=== PATIENT | female | born 1980 | race African-American/Black ===

== ENCOUNTER 2019-08-17 14:52 | Outpatient (CLI) | payer OTHER, SELFPAY ==
--- NOTE | ~2019-08-17 | US_ITS ---
EXAMINATION: US pelvic complete w TV EXAM DATE: 08/17/2019 15:42 INDICATION: Fibroid. TECHNIQUE: Pelvic transabdominal and transvaginal sonogram was performed. There are multiple graysca le and Doppler images available for interpretation. There is no prior study for comparison. FINDINGS: Uterus measures 15.4 x 9.0 x 7.9 cm, with multiple fibroids, largest measuring 8 cm. Endom etrial stripe measures 11 mm, within normal limits. There are nabothian cysts. There is no free pel kevin fluid. Right adnexa: The ovary is not identified. There is no adnexal mass. Left adnexa: The ovary measures 3.9 x 2.8 x 1.9 cm and is morphologically normal. Ovarian vascular fl ow confirmed. IMPRESSION: 1. Significantly enlarged fibroid uterus. Reviewed, dictated and finalized at location [facility].
== END 2019-08-17 14:53 | disposition home or self-care (01) ==
PROVIDERS: Visit Provider Obstetrics & Gynecology Gynecology
DX: D25.9 Leiomyoma of uterus, unspecified (principal)
CPT/HCPCS: 76830; 76856

== ENCOUNTER 2019-12-05 20:26 | Emergency (ER) | payer OTHER, SELFPAY ==
--- NOTE | ~2019-12-05 | US_ITS ---
US OB <=14 wk fetus w TV DATE: 12/05/2019 23:21 INDICATION: Mid pelvic pain. Abdominal pain. Vaginal bleeding. TECHNIQUE: Real-time imaging via transabdominal and transvaginal approaches COMPARISON: 08/17/2019 pelvic ultrasound FINDINGS: Lobular enlarged heterogeneous uterus with multiple fibroids, measuring up to 8.8 cm. There is an apparent intrauterine gestational sac with suggestion of a pole but no cardia c motion. Gestational sac size is consistent with 6 weeks 6 days estimated gestational age. [place]-rump length 0.66 cm is consistent with 6 weeks 4 days +/- 4 days, with GILBERT of 07/26/2020, compar ed to 07/03/2020 by LMP. Follow-up ultrasound imaging in one week is recommended. Right ovary measures 4.3 x 2.2 x 1.9 cm. Left ovary measures 2.8 x 2 x 1.7 cm with a 1.1 cm cyst. There is vascular flow demonstrated to both ovaries. No abnormal free pelvic fluid collection. IMPRESSION: No cardiac motion is demonstrated; recommend follow-up ultrasound imaging in one we ek to confirm possible demise Reviewed, dictated and finalized at [facility]. Reviewed, dictated and finalized at location [facility]. IMPRESSION: No cardiac motion is demonstrated; recommend follow-up ultras ound imaging in one week to confirm possible demise
[2019-12-05 20:28] VITALS: BP 181/110; PULSE 70; RESP 19; TEMP 36.4; O2SAT 98
[2019-12-05 21:51] VITALS: BP 170/102; PULSE 73; RESP 16; O2SAT 100
[2019-12-05 22:08] LABS: Basophils Percent Auto 0.6 % (0.2-1.2); Eosinophils Absolute Auto 0.3 K/mm3 (0-0.3); Eosinophils Percent Auto 4.4 % (0-4.4); Hematocrit 33.5 % (37.0-47.0); Hemoglobin 10.6 g/dL (12.0-15.0); Immature Granulocyte Absolute 0.01 K/mm3 (0.00-0.031); Immature Granulocyte Percent A 0.1 % (0-0.5); Lymphocytes Absolute Auto 2.16 K/mm3 (0.9-3.2); Lymphocytes Percent Auto 30.8 % (18.3-44.2); Mean Corpuscular HGB Conc 31.6 g/dl (32-36); Mean Corpuscular Hemoglobin 26.3 pg (26-34); Mean Corpuscular Volume 83.1 fl (80-100); Mean Platelet Volume 9.7 fl (7.4-10.4); Monocytes Absolute Auto 0.6 K/mm3 (0.1-0.6); Monocytes Percent Auto 8.3 % (2.6-8.5); Neutrophils Absolute Auto 3.9 K/mm3 (1.3-6.7); Neutrophils Percent Auto 55.8 % (45.5-73.1); Platelet Count Result 254 k/mm3 (150-375); Red Blood Count 4.03 M/mm3 (4.2-5.4)
--- NOTE | 2019-12-05 22:13 | PC.NURSE ---
XY notified of US orders.
[2019-12-05 22:25] LABS: Anion Gap 7 mmol/L (8-16); Blood Urea Nitrogen 11 mg/dL (7-17); Calcium 9.1 mg/dL (8.4-10.2); Carbon Dioxide 26 mmol/L (22-30); Chloride 104 mmol/L (98-107); Estimated CRCL calculation 86 ml/min; Estimated Glomerular Filt Rate > 60; Glucose 90 mg/dL (65-105); Potassium 3.8 mmol/L (3.4-5.0); Sodium 137 mmol/L (137-145)
--- NOTE | 2019-12-05 23:38 | ED.GENADULT ---
HPI - General Adult General Chief complaint: Unspecified Stated complaint: possible miscarrige Time Seen by Provider: 12/05/19 21:45 History of Present Illness HPI narrative: Patient is a 39-year-old female who presents the ER with suprapubic cramping. Patient is currently . She has been having blood levels drawn by her primary OB. They are at 12,000 and 10,000. Her blood type is B+. She had some dark blood yesterday and then started spotting dark bright red blood today with some stringy material. Patient has history of fibroids. No nausea/vomiting. No history of ultrasound to confirm placement of . Related Data Home Medications Medication Instructions Recorded Confirmed No Home Medications 12/05/19 12/05/19 Allergies Allergy/AdvReac Type Severity Reaction Status Date / Time No Known Allergies Allergy Verified 12/05/19 21:54 Review of Systems Constitutional: Constitutional: Denies chills, Denies fever(s) and Denies weakness ENT: Denies nasal congestion and Denies sore throat Gastrointestinal: Gastrointestinal: Reports abdominal pain, Denies nausea and Denies vomiting Genitourinary: Genitourinary: Reports abnormal vaginal bleeding, Denies hematuria and Denies dysuria PMFSH Past Medical History Medical History (Updated 12/06/19 @ 01:46 by Femi Hernandez MD) Fibroid uterus Surgical History Surgical History (Updated 12/05/19 @ 23:39 by Femi Hernandez MD) No history of previous surgery Social History Social History (Updated 12/05/19 @ 23:40 by Femi Hernandez MD) Smoking status: Never smoker Gender identity (if verbalized by the patient): Female Exam Narrative: Exam Narrative: GENERAL: Well-appearing, well-nourished, and in no acute distress. HEAD: Normocephalic, atraumatic. ENT: Mucous membranes moist. CHEST: Clear to auscultation. No respiratory distress. HEART: Regular rate and rhythm. Normal peripheral pulses. ABDOMEN: Soft, nontender, palpable uterus and lower abdomen due to fibroids. Pelvic: EXTREMITIES: Normal range of motion. No edema. NEURO: Alert and oriented x3. Course Course Emergency Course: Patient informed of results. Discussed with Dr. Alarcon. Expectant management. Patient educated on this. Vital Signs Vital signs: Vital Signs Temperature 97.5 F L 12/05/19 20:28 Pulse Rate 70 12/05/19 20:28 Respiratory Rate 19 12/05/19 20:28 Blood Pressure 181/110 H 12/05/19 20:28 Pulse Oximetry 98 12/05/19 20:28 Temperature 97.5 F L 12/05/19 20:28 Pulse Rate 73 12/05/19 21:51 Respiratory Rate 16 12/05/19 21:51 Blood Pressure 170/102 H 12/05/19 21:51 Pulse Oximetry 100 12/05/19 21:51 Medical Decision Making Vital Signs Vital Signs: Vital Signs Temperature 97.5 F L 12/05/19 20:28 Pulse Rate 70 12/05/19 20:28 Respiratory Rate 19 12/05/19 20:28 Blood Pressure 181/110 H 12/05/19 20:28 Pulse Oximetry 98 12/05/19 20:28 Temperature 97.5 F L 12/05/19 20:28 Pulse Rate 73 12/05/19 21:51 Respiratory Rate 16 12/05/19 21:51 Blood Pressure 170/102 H 12/05/19 21:51 Pulse Oximetry 100 12/05/19 21:51 Lab Data Result diagrams: 12/05/19 21:57 12/05/19 21:57 Labs: Lab Results 12/05/19 12/05/19 Range/Units 21:57 21:57 WBC 7.0 (4.5-10.0) K/mm3 RBC 4.03 L (4.2-5.4) M/mm3 Hgb 10.6 L (12.0-15.0) g/dL Hct 33.5 L (37.0-47.0) % MCV 83.1 (80-100) fl MCH 26.3 (26-34) pg MCHC 31.6 L (32-36) g/dl RDW 14.0 (11.5-14.5) % Plt Count 254 (150-375) k/mm3 MPV 9.7 (7.4-10.4) fl Immature Gran % (Auto) 0.1 (0-0.5) % Neut % (Auto) 55.8 (45.5-73.1) % Lymph % (Auto) 30.8 (18.3-44.2) % [place] % (Auto) 8.3 (2.6-8.5) % Eos % (Auto) 4.4 (0-4.4) % Baso % (Auto) 0.6 (0.2-1.2) % Lymph # (Auto) 2.16 (0.9-3.2) K/mm3 [place] # (Auto) 0.6 (0.1-0.6) K/mm3 Eos # (Auto) 0.3 (0-0.3) K/mm3 Baso # (Auto)
[2019-12-06 01:53] VITALS: BP 155/97; PULSE 67; RESP 18; O2SAT 100
== END 2019-12-06 01:54 | disposition home or self-care (01) ==
PROVIDERS: Emergency Provider Emergency Medicine; PCP Obstetrics & Gynecology Gynecology
DX: O03.4 Incomplete spontaneous abortion without complication (principal)
CPT/HCPCS: 36415; 76801; 76817; 80048; 84702; 85025; 99284

== ENCOUNTER 2020-01-27 13:53 | Outpatient (RCR) | payer OTHER, SELFPAY ==
[2019-12-30 14:55] LABS: Beta HCG Quantitative 123.92 mIU/ML
[2020-01-11 18:41] LABS: Beta HCG Quantitative 35.31 mIU/ML
[2020-01-27 14:34] LABS: Beta HCG Quantitative 10.85 mIU/ML
== END 2020-02-28 23:59 | disposition home or self-care (01) ==
LOC: ANHLAB 13:53
PROVIDERS: PCP Obstetrics & Gynecology Gynecology; Visit Provider Obstetrics & Gynecology Gynecology
DX: Z32.01 Encounter for pregnancy test, result positive (principal); O02.1 Missed abortion; Z3A.00 Weeks of gestation of pregnancy not specified
CPT/HCPCS: 36415; 84702; 85461

== ENCOUNTER 2020-05-09 16:37 | Outpatient (RCR) | payer SELFPAY ==
[2020-05-09 17:34] LABS: Beta HCG Quantitative < 2.39 mIU/ML
== END 2020-08-07 23:59 | disposition home or self-care (01) ==
LOC: ANHLAB 16:37
PROVIDERS: PCP Obstetrics & Gynecology Gynecology; Visit Provider Obstetrics & Gynecology Gynecology
DX: O03.9 Complete or unspecified spontaneous abortion without complication (principal)
CPT/HCPCS: 36415; 84702

== ENCOUNTER 2021-08-07 12:47 | Outpatient (RCR) | payer OTHER, SELFPAY ==
[2021-05-27 17:49] LABS: Beta HCG Quantitative 146.04 mIU/ML
[2021-05-29 17:48] LABS: Beta HCG Quantitative 112.25 mIU/ML
[2021-08-07 13:35] LABS: Beta HCG Quantitative < 2.39 mIU/ML
== END 2021-08-25 23:59 | disposition home or self-care (01) ==
LOC: ANHLAB 12:47
PROVIDERS: PCP Obstetrics & Gynecology Gynecology; Visit Provider Obstetrics & Gynecology Gynecology
DX: O26.21 Pregnancy care for patient with recurrent pregnancy loss, first trimester (principal); O02.1 Missed abortion; Z3A.00 Weeks of gestation of pregnancy not specified
CPT/HCPCS: 36415; 84702